=== PATIENT | female | born 1970 | race Caucasian/White ===

== ENCOUNTER 2022-03-06 22:43 | Emergency (ER) | payer BC, MEDICAID ==
[~2022-03-06] VITALS: Ht 165.1 cm; Wt 104.3 kg
[2022-03-07 02:50] VITALS: BP 131/77
== END 2022-03-07 02:54 | disposition home or self-care (01) ==
LOC: ER 22:43
DX: J06.9 Acute upper respiratory infection, unspecified (principal); J45.909 Unspecified asthma, uncomplicated; G43.909 Migraine, unspecified, not intractable, without status migrainosus; Z90.710 Acquired absence of both cervix and uterus; Z88.2 Allergy status to sulfonamides; Z20.822 Contact with and (suspected) exposure to COVID-19
CPT/HCPCS: 36415; 87426; 87804

== ENCOUNTER → 2023-02-10 | Outpatient (CLI) | payer MEDICAID ==
[2023-02-10 09:12] LABS: Basophils # (auto) 0 10 ^3/uL (0-0.2); Basophils % (auto) 0.5 % (0.0-2.0); Eosinophils # (auto) 0.2 10 ^3/uL (0-0.8); Eosinophils % (auto) 3.5 % (0.0-7.0); Hematocrit 40.3 % (36.0-46.0); Hemoglobin 13.6 g/dL (12.2-16.2); Lymphocytes # (auto) 2.1 10 ^3/uL (0.4-5.4); Lymphocytes % (auto) 33.1 % (10.0-50.0); Mean Corpuscular Hemoglobin 30.9 pg (28.0-32.0); Mean Corpuscular Hgb Conc. 33.8 g/dL (32.0-36.0); Mean Corpuscular Volume 91.6 fL (80.0-100.0); Monocytes # (auto) 0.6 10 ^3/uL (0-1.3); Monocytes % (auto) 8.7 % (0.0-12.0); Neutrophils # (auto) 3.5 10 ^3/uL (1.6-8.6); Neutrophils % (auto) 54.2 % (37.0-80.0); Red Cell Distribution Width 13.9 % (11.8-14.3); White Blood Cell 6.4 10^3/uL (4.4-10.8)
[2023-02-10 09:34] LABS: % Iron Saturation 14.4 % (15-50)
[2023-02-10 09:37] LABS: Alanine Aminotransferase 24 U/L (7-40); Albumin 4.4 g/dL (3.2-4.8); Alkaline Phosphatase 123 U/L (46-116); Anion Gap 4 (5-15); Aspartate Aminotransferase 19 U/L (13-40); Carbon Dioxide 26 mmol/L (20-30); Chloride 110 mmol/L (98-107); Potassium 4.4 mmol/L (3.5-5.1); Sodium 140 mmol/L (136-145)
[2023-02-10 09:38] LABS: BUN/Creatinine Ratio 21.5 (10.0-20.0); Blood Urea Nitrogen 17 mg/dL (9-23); Glucose 91 mg/dL (74-106); Triglycerides 77 mg/dL (< 150)
[2023-02-10 09:39] LABS: Cholesterol 114 mg/dL (< 200); LDL Cholesterol 41 mg/dL (< 100)
[2023-02-10 09:40] LABS: Bilirubin, Total 0.3 mg/dL (0.2-1.0); HDL Cholesterol 47 mg/dL (40-59); Total Protein 6.6 g/dL (5.7-8.2)
[2023-02-10 13:20] LABS: Magnesium 2.1 mg/dL (1.6-2.6)
== END | disposition home or self-care (01) ==
LOC: LAB 08:22
PROVIDERS: ATTEND Internal Medicine
DX: Z00.01 Encounter for general adult medical examination with abnormal findings (principal); E66.8 Other obesity; L98.9 Disorder of the skin and subcutaneous tissue, unspecified; J30.2 Other seasonal allergic rhinitis
CPT/HCPCS: 36415; 80053; 80061; 80074; 82607; 82947; 83036; 83540; 83550; 83735; 84443; 85025